=== PATIENT | female | born 1985 | race Caucasian/White ===

== ENCOUNTER 2017-09-24 09:52 | Emergency (ER) | payer SELFPAY ==
[~2017-09-24] VITALS: Ht 154.9 cm; Wt 51.7 kg
[2017-09-24 09:55] VITALS: BP 113/80
--- NOTE | 2017-09-24 10:05 | NUR ---
32 YO F BIB FAMILY W/ C/O DIZZINESS. PT REPORTS IT HAS BEEN GOING ON FOR 1 MONTH, BUT TODAY AT WORK SHE GOT SENT HOME FOR SEVERE DIZZINESS AND BODY WEAKNESS TO THE POIMT SHE "ALMOST PASSED OUT". PT A&O X 4. GCS 15. CMS INTACT. PERRLA INTACT. DENIES PAIN. DENIES VOMITING, BUT HAS HAD INTERMITTENT NAUSEA. ABD SOFT, NON-TENDER. RR EVEN AND UNLABORED. LUNGS BILATERALLY CLEAR AT THIS TIME. PT AMBULATORY W/ STEADY GAIT. ER MD JUAREZ NOTIFIED. PT NEEDS MET. SAFETY PRECAUTIONS IN PLACE. WILL CONTINUE TO MONITOR.
--- NOTE | 2017-09-24 10:15 | NUR ---
XRAY AT BEDSIDE AT THIS TIME.
--- NOTE | 2017-09-24 10:21 | NUR ---
LAB AT BEDSIDE AT THIS TIME.
[2017-09-24 10:35] LABS: BASOPHILS % (AUTO) 0.5 % (0.0-2.0); EOSINOPHILS # (AUTO) 0.1 K/uL (0-0.4); EOSINOPHILS % (AUTO) 1.1 % (0.0-4.0); HEMATOCRIT 40.7 % (36-48); HEMOGLOBIN 13.6 g/dL (12.0-16.0); LYMPHOCYTES # (AUTO) 2.5 K/uL (2.5-16.5); LYMPHOCYTES % (AUTO) 26.4 % (20.5-51.1); MEAN CORPUSCULAR HEMOGLOBIN 28 pg (27-31); MEAN CORPUSCULAR HGB CONC 34 g/dL (33-37); MEAN CORPUSCULAR VOLUME 82.9 fL (80-94); MONOCYTES # (AUTO) 0.5 K/uL (0.8-1.0); MONOCYTES % (AUTO) 5.5 % (1.7-9.3); NEUTROPHILS # (AUTO) 6.3 K/uL (1.8-7.7); NEUTROPHILS % (AUTO) 66.5 % (42.2-75.2); PLATELET COUNT (AUTO) 375 K/uL (140-450); RED BLOOD CELL COUNT(AUTO) 4.91 MIL/uL (4.20-5.40); RED CELL DISTRIBUTION WIDTH 13.9 % (11.6-13.7); WHITE BLOOD COUNT (AUTO) 9.4 K/uL (4.8-10.8)
[2017-09-24 10:59] LABS: CREATINE KINASE MB 0.6 ng/mL (0-3.6)
[2017-09-24 11:18] LABS: ANION GAP 12.1 (8-16); CARBON DIOXIDE 29.9 mmol/L (21-32); TOTAL BILIRUBIN 0.3 mg/dL (0.0-1.0)
[2017-09-24 11:24] LABS: CREATININE 0.7 mg/dL (0.6-1.3)
[2017-09-24 11:44] VITALS: BP 108/78
--- NOTE | 2017-09-24 11:44 | NUR ---
Patient discharged with v/s stable. Written and verbal after care instructions given and explained. Patient verbalized understanding. Ambulatory with steady gait. All questions addressed prior to discharge. Advised to follow up with PMD.
== END 2017-09-24 11:44 | disposition home or self-care (01) ==
LOC: MED 09:52
DX: R53.1 Weakness (principal); R53.83 Other fatigue
CPT/HCPCS: 36415; 71045; 80053; 81002; 81025; 82550; 82553; 84484; 85025; 93005; 99285; Q0092